=== PATIENT | male | born 1945 | race Caucasian/White ===

== ENCOUNTER 2018-08-30 16:11 | Inpatient (IN) | payer MEDICARE, MEDICAID ==
[~2018-08-30] VITALS: Ht 175.3 cm; Wt 71.7 kg
[2018-08-30] MEDS ORDERED: ABILIFY20 MG ORAL (16:17)
[2018-08-30] MEDS ORDERED: Sodium Chloride 500ML 500 ML IV ONE (16:18)
[2018-08-30] MEDS ORDERED: ATORVASTATIN CA20 MG ORAL (16:22)
[2018-08-30] MEDS ORDERED: MILK OF MA400 MG/51 ORAL (16:22)
[2018-08-30] MEDS ORDERED: LANTUS SOL100 UNIT/1 SUBQ (16:22)
[2018-08-30] MEDS ORDERED: OMEPRAZOLE40 M1 ORAL (16:22)
[2018-08-30] MEDS ORDERED: SYNTHROID100 MCG ORAL (16:22)
[2018-08-30] MEDS ORDERED: METOPROLOL SUCC25 MG ORAL (16:22)
[2018-08-30] MEDS ORDERED: FLEET ENEMA133 ML RECTAL (16:22)
[2018-08-30] MEDS ORDERED: GLUCAGEN1 M1 IJ (16:22)
[2018-08-30] MEDS ORDERED: ACETAMINOPHEN120 MG PO (16:22)
[2018-08-30] MEDS ORDERED: SENNA8.6 M2 PO (16:22)
[2018-08-30] MEDS ORDERED: BISACODYL5 MG ORAL (16:22)
[2018-08-30] MEDS ORDERED: COLACE100 MG ORAL (16:22)
[2018-08-30] MEDS ORDERED: ACETAMINOPHEN325 M1 ORAL (16:23)
--- NOTE | 2018-08-30 16:27 | Emergency Room Report ---
History of Present Illness General Chief Complaint: Altered Level of Consciousness Source: Medical Record Present Illness HPI Patient presents to ER with complaints of change in mental status Paramedics report the nursing facility felt the patient had been altered for the past one to 2 days Upon arrival the patient cannot provide history of why he was brought to the emergency room He is speaking clearly reports that he has been to the hospital several times Denies any chest pain denies any nausea vomiting denies any fevers or chills Patient was reported to have significantly elevated glucose upon arrival Allergies: Coded Allergies: No Known Allergies (Unverified , 08/30/18) Patient History Past Medical History: see triage record Pertinent Family History: none Reviewed Nursing Documentation: PMH: Agreed; PSxH: Agreed Nursing Documentation-PMH Past Medical History: No History, Except For Hx Cardiac Problems: No - hypothyroidism, anemia, hyperlipidemia Hx Hypertension: Yes Hx Diabetes: 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, muscle weakness Hx Gastrointestinal Problems: No - GERD History Of Psychiatric Problem: No - schizoprenia, failure to thrive, anxiety, Review of Systems All Other Systems: limited - Other than the ones mentioned in the history of present illness all others are reviewed however they do stay limited due to the patient's mental status Physical Exam Vital Signs Date Time Temp Pulse Resp B/P (MAP) Pulse Ox O2 Delivery O2 Flow Rate FiO2 08/30/18 16:09 98.2 84 16 170/82 98 Room Air Sp02 EP Interpretation: reviewed, normal General Appearance: no apparent distress Head: normocephalic, atraumatic Eyes: bilateral eye PERRL, bilateral eye EOMI ENT: hearing grossly normal, TMs + canals normal, uvula midline, dry mucus membranes Neck: full range of motion, supple, no meningismus, no bony tend Respiratory: lungs clear, normal breath sounds, no rhonchi, no respiratory distress, no retraction, no accessory muscle use Cardiovascular #1: normal peripheral pulses, regular rate, rhythm, no edema, no gallop, no JVD, no murmur Gastrointestinal: normal bowel sounds, non tender, soft, no mass, no organomegaly, non-distended, no guarding, no hernia, no pulsatile mass, no rebound Genitourinary: no CVA tenderness Musculoskeletal: normal inspection Neurologic: responsive, mental health case manager III-XII nml as tested, motor strength/tone normal, sensory intact Psychiatric: mood/affect normal Skin: normal color, no rash, warm/dry, palpation normal Lymphatic: normal inspection, no adenopathy Medical Decision Making Diagnostic Impression: Primary Impression: Altered level of consciousness Additional Impressions: Weakness Hyperglycemia ER Course Multiple differentials are considered Patient requires extensive blood work and acute intervention glucose levels are significantly elevated however the patient does not show evidence of acidosis or DKA Further hydration is provided including insulin Patient placed into admission for further care Labs Test 08/30/18 15:25 08/30/18 17:15 White Blood Count 4.4 K/UL (4.8-10.8) Red Blood Count 4.15 M/UL (4.70-6.10) Hemoglobin 12.5 G/DL (14.2-18.0) Hematocrit 34.9 % (42.0-52.0) Mean Corpuscular Volume 84 FL (80-99) Mean Corpuscular Hemoglobin 30.0 PG (27.0-31.0) Mean Corpuscular Hemoglobin Concent 35.7 G/DL (32.0-36.0) Red Cell Distribution Width 10.1 % (11.6-14.8) Platelet Count 180 K/UL (150-450) Mean Platelet Volume 6.5 FL (6.5-10.1) Neutrophils (%) (Auto) 59.0 % (45.0-75.0) Lymphocytes (%) (Auto) 31.9 % (20.0-45.0) Monocytes (%) (Auto) 6.5 % (1.0-10.0) Eosinophils (%) (Auto) 1.6 % (0.0-3.0) Basophils (%) (Auto) 1.0 % (0.0-2.0) Sodium Level 132 MMOL/L (136-145) Potassium Level 3.7 MMOL/L (3.5-5.1) Chloride Level 97 MMOL/L (98-107) Carbon Dioxide Level 25 MMOL/L (21-32) Anion Gap 10 mmol/L (5-15) Blood Urea Nitrogen 19 mg/dL (7-18) Creatinine 1.2 MG/DL (0.55-1.30) Estimat Glomerular Filtration Rate mL/min (>60) Glucose Level 457 MG/DL (74-106) Calcium Level 8.9 MG/DL (8.5-10.1) Total Bilirubin 0.2 MG/DL (0.2-1.0) Aspartate Amino Transf (AST/SGOT) 14 U/L (15-37) Alanine Aminotransferase (ALT/SGPT) 32 U/L (12-78) Alkaline Phosphatase 106 U/L (46-116) Total Creatine Kinase 91 U/L (26-308) Creatine Kinase MB 1.2 NG/ML (0.0-3.6) Creatine Kinase MB Relative Index 1.3 Troponin I 0.013 ng/mL (0.000-0.056) Total Protein 7.8 G/DL (6.4-8.2) Albumin 3.4 G/DL (3.4-5.0) Globulin 4.4 g/dL Albumin/Globulin Ratio 0.8 (1.0-2.7) Lipase 153 U/L (73-393) Urine Color Pale yellow Urine Appearance Clear Urine pH 6 (4.5-8.0) Urine Specific Ware 1.005 (1.005-1.035) Urine Protein Negative (NEGATIVE) Urine Glucose (UA) 4+ (NEGATIVE) Urine Ketones Negative (NEGATIVE) Urine Blood Negative (NEGATIVE) Urine Nitrite Negative (NEGATIVE) Urine Bilirubin Negative (NEGATIVE) Urine Urobilinogen Normal MG/DL (0.0-1.0) Urine Leukocyte Esterase Negative (NEGATIVE) Rhythm Strip Diag. Results EP Interpretation: yes Rate: 66 Rhythm: NSR, no PVC's, no ectopy Chest X-Ray Diagnostic Results Chest X-Ray Diagnostic Results : Chest X-Ray Ordered: Yes # of Views/Limited/Complete: 1 View Indication: Chest Pain EP Interpretation: Yes Interpretation: no consolidation, no effusion, no pneumothorax Impression: No acute disease Electronically Signed by: Jesus Velazquez DO Last Vital Signs Date Time Temp Pulse Resp B/P (MAP) Pulse Ox O2 Delivery O2 Flow Rate FiO2 08/30/18 16:09 98.2 84 16 170/82 98 Room Air Status: improved Disposition: ADMITTED INPATIENT Condition: Serious Jesus Velazquez DO Aug 30, 2018 16:27
[2018-08-30 16:43] VITALS: BP 153/69
[2018-08-30 16:54] LABS: EOSINOPHILS % (AUTO) 1.6 % (0.0-3.0); HEMATOCRIT 34.9 % (42.0-52.0); HEMOGLOBIN 12.5 G/DL (14.2-18.0); LYMPHOCYTES % (AUTO) 31.9 % (20.0-45.0); MEAN CORPUSCULAR VOLUME 84 FL (80-99); MONOCYTES % (AUTO) 6.5 % (1.0-10.0); PLATELET COUNT 180 K/UL (150-450); RED BLOOD COUNT 4.15 M/UL (4.70-6.10); RED CELL DISTRIBUTION WIDTH 10.1 % (11.6-14.8); WHITE BLOOD COUNT 4.4 K/UL (4.8-10.8)
[2018-08-30 17:00] LABS: ANION GAP 10 mmol/L (5-15); BLOOD UREA NITROGEN 19 mg/dL (7-18); CALCIUM 8.9 MG/DL (8.5-10.1); CARBON DIOXIDE 25 MMOL/L (21-32); CHLORIDE 97 MMOL/L (98-107); CREATININE 1.2 MG/DL (0.55-1.30); POTASSIUM 3.7 MMOL/L (3.5-5.1); SODIUM 132 MMOL/L (136-145)
--- NOTE | 2018-08-30 17:01 | Diagnostic Imaging Report ---
Indication: Shortness of breath Technique: One view of the chest Comparison: none Findings: Lungs and pleural spaces are clear. Heart size is normal. Impression: Negative
[2018-08-30 17:13] LABS: ALANINE AMINOTRANSFERASE 32 U/L (12-78); ALBUMIN 3.4 G/DL (3.4-5.0); ALBUMIN/GLOBULIN RATIO 0.8 (1.0-2.7); ALKALINE PHOSPHATASE 106 U/L (46-116); ASPARTATE AMINO TRANSFERASE 14 U/L (15-37); BILIRUBIN,TOTAL 0.2 MG/DL (0.2-1.0); CKMB 1.2 NG/ML (0.0-3.6); CREATINE KINASE 91 U/L (26-308)
[2018-08-30 17:38] LABS: APPEARANCE,URINE CLEAR; BILIRUBIN, URINE NEGATIVE (NEGATIVE); COLOR,URINE PALE YELLOW; GLUCOSE, URINE (UA) 4+ (NEGATIVE); KETONES,URINE NEGATIVE (NEGATIVE); LEUKOCYTE ESTERASE ,URINE NEGATIVE (NEGATIVE); NITRITE,URINE NEGATIVE (NEGATIVE); PH,URINE 6 (4.5-8.0); PROTEIN,URINE NEGATIVE (NEGATIVE); UROBILINOGEN,URINE NORMAL MG/DL (0.0-1.0)
[2018-08-30 17:42] VITALS: BP 156/70
[2018-08-30] MEDS ORDERED: Insulin Human Regular 100units/ml 3ml IV ONE (18:15)
[2018-08-30 19:40] VITALS: BP 117/76
[2018-08-30 20:07] VITALS: BP 141/72
[2018-08-30] MEDS ORDERED: Fleet's Enema 133ml RECTAL ONE (20:45)
[2018-08-30] MEDS ORDERED: Sennosides 8.6mg tab ORAL PRN (20:45)
[2018-08-30] MEDS ORDERED: Bisacodyl EC 5mg tab ORAL PRN (20:45)
[2018-08-30] MEDS ORDERED: Milk of Magnesia 30ml Ud ORAL PRN (20:45)
[2018-08-30] MEDS ORDERED: Fleet's Enema 133ml RECTAL PRN (21:00)
[2018-08-30] MEDS: Atorvastatin 20mg tab ORAL SCH (21:37)
[2018-08-30] MEDS: NovoLOG Insulin Flexpen SUBQ SCH (21:38)
[2018-08-31 04:00] VITALS: BP 152/99
[2018-08-31] MEDS: NovoLOG Insulin Flexpen SUBQ SCH ×6 (05:40→20:41)
[2018-08-31 07:30] VITALS: BP 132/73
[2018-08-31] MEDS: Docusate 100mg cap ORAL SCH (08:03)
[2018-08-31] MEDS: Metoprolol Succinate XL 25mg tab ORAL SCH (08:03)
[2018-08-31] MEDS ORDERED: ARIPiprazole 10mg tab ORAL SCH (09:00)
[2018-08-31 12:00] VITALS: BP 153/80
[2018-08-31] MEDS: Levemir Flexpen SUBQ SCH (14:21)
[2018-08-31 16:00] VITALS: BP 169/85
--- NOTE | 2018-08-31 16:45 | History and Physical Report ---
DATE OF ADMISSION: 08/30/2018 Basically, this is Dr. Zac Yung's patient. I am covering Dr. Zac Yung. HISTORY OF PRESENT ILLNESS: The patient is admitted for elevated blood sugar. He is a poor historian and admitted for encephalopathy. The patient again is a poor historian, cannot get the information from him, but the patient's blood sugar was elevated, was altered, and is admitted for that reason. PAST MEDICAL HISTORY: Organic brain syndrome, psychosis, hyperlipidemia, constipation, NIDDM, hypothyroidism, GERD, and constipation. PAST SURGICAL HISTORY: Unable to obtain. ALLERGIES: No known allergies. MEDICATIONS: Abilify, Lipitor, bisacodyl, Colace, insulin, Levemir, levothyroxine, omeprazole, Senokot. FAMILY HISTORY: Unable to obtain. SOCIAL HISTORY: Unable to obtain. REVIEW OF SYSTEMS: Poor historian. Unable to obtain. PHYSICAL EXAMINATION: VITAL SIGNS: Temperature degrees, pulse is 84, and blood pressure 152/99. HEENT: PERRLA. NECK: Supple. No lymphadenopathy. CHEST: Clear to auscultation. CARDIOVASCULAR: Regular rate and rhythm. GASTROINTESTINAL: Abdomen is soft. Positive bowel sounds. EXTREMITIES: No edema. Reflexes on both sides. LABORATORY AND DIAGNOSTIC DATA: WBC 4.4, hemoglobin 12.5, and platelets 180,000. Sodium 133, potassium 3.7, chloride 97, BUN of 19, creatinine of 1.2, glucose 457, and hemoglobin A1c 10.9. ASSESSMENT AND PLAN: 1. Elevated blood pressure. 2. Altered mental status, most likely due to elevated blood sugar. 3. Hyponatremia. 4. Borderline potassium and elevated BUN. I have asked Dr. Rowan and Dr. Lopes to see the patient for the above-mentioned diagnoses and treatment. Jesus Chew M.D. DR: DANIEL JOB#: [id number] CC:
[2018-08-31 18:00] VITALS: BP 138/73
[2018-08-31 20:00] VITALS: BP 151/89
[2018-08-31] MEDS: Atorvastatin 20mg tab ORAL SCH (20:41)
[2018-09-01] MEDS: NovoLOG Insulin Flexpen SUBQ SCH ×7 (06:24→20:42)
[2018-09-01 07:40] VITALS: BP 155/80
[2018-09-01] MEDS: Metoprolol Succinate XL 25mg tab ORAL SCH (08:12)
[2018-09-01] MEDS: Levemir Flexpen SUBQ SCH (08:13)
[2018-09-01] MEDS: Docusate 100mg cap ORAL SCH (08:14)
--- NOTE | 2018-09-01 10:00 | Consultation ---
DATE OF CONSULTATION: 09/01/2018 ENDOCRINOLOGY CONSULTATION CONSULTING PHYSICIAN: Igor Rowan M.D. REFERRING PHYSICIAN: Jesus Chew M.D. REASON FOR CONSULTATION: Diabetes management. HISTORY OF PRESENT ILLNESS: The patient is a 73-year-old male, who presented to the hospital with a complaint of change in mental status. He comes from nursing facility and the paramedics reported that the patient was altered for the past two days. It was difficult to elicit history from him. Glucose was elevated and Endocrinology was consulted in order to assist in the management of diabetes. PAST MEDICAL HISTORY: 1. Diabetes. 2. Hypothyroidism. 3. Anemia. 4. Hyperlipidemia. PAST SURGICAL HISTORY: Unknown. FAMILY HISTORY: Noncontributory. SOCIAL HISTORY: No smoking, alcohol or drug use. He lives in a intermediate facility. LABORATORY DATA: WBC 4, hemoglobin 12, hematocrit 34.9, and platelets of 180. Sodium 132, potassium 3.7, chloride 97, bicarbonate 25, BUN 19, creatinine 1.2, glucose of 457. A1c of 10.9. PHYSICAL EXAMINATION: GENERAL: Not in apparent distress. VITAL SIGNS: Blood pressure 155/80, pulse of 101, temperature of 97.8, and respiratory rate 18. HEENT: Pupils are equal and reactive to light. Sclerae anicteric. NECK: No JVD. HEART: Regular. LUNGS: Clear. ABDOMEN: Positive bowel sounds. EXTREMITIES: No clubbing or cyanosis. DIAGNOSES: 1. Encephalopathy. 2. Diabetes, out of control. 3. Hypothyroidism. PLAN: 1. Start Levemir 30 units daily. 2. Start NovoLog 8 units before each meal. 3. NovoLog sliding scale before meals and at bedtime. 4. Continue levothyroxine 100 mcg daily. 5. I will follow the patient during hospital stay. Thank you, Dr. Chew, for the courtesy of this consultation. Igor Rowan M.D. DR: DYLAN/LYSSA JOB#: [id number] CC: NAINA
--- NOTE | 2018-09-01 11:02 | General Progress Note ---
Assessment/Plan Problem List: (1) Hyperglycemia ICD Codes: R73.9 - Hyperglycemia, unspecified SNOMED: 11083628 (2) Weakness ICD Codes: R53.1 - Weakness SNOMED: 60803207 (3) Altered level of consciousness ICD Codes: R40.4 - Transient alteration of awareness SNOMED: 6935507 Status: progressing Assessment/Plan afebrile ams elevated sugar is improving dr diez for diabetic adjustment Subjective ROS Limited/Unobtainable: Yes Allergies: Coded Allergies: No Known Allergies (Unverified , 08/30/18) Objective Last 24 Hour Vital Signs Date Time Temp Pulse Resp B/P (MAP) Pulse Ox O2 Delivery O2 Flow Rate FiO2 09/01/18 09:00 Room Air 09/01/18 08:12 101 155/80 09/01/18 07:40 97.9 101 155/80 (105) 08/31/18 20:48 Room Air 08/31/18 20:00 98.6 82 18 151/89 (109) 100 08/31/18 18:00 63 138/73 (94) 08/31/18 16:00 97.5 78 18 169/85 (113) 100 08/31/18 12:00 98.1 98 19 153/80 (104) 98 Intake and Output 08/31/18 09/01/18 19:00 07:00 Intake Total 600 ml 360 ml Balance 600 ml 360 ml Intake Oral 600 ml 360 ml # Voids 3 2 # Bowel Movements 2 Laboratory Tests 08/31/18 12:20: Hemoglobin A1c 10.9H Height (Feet): 5 Height (Inches): 9.00 Weight (Pounds): 158 Cardiovascular: regular rhythm Respiratory/Chest: lungs clear Abdomen: soft Jesus Chew MD Sep 01, 2018 11:02
[2018-09-01 12:00] VITALS: BP 142/95
[2018-09-01 16:00] VITALS: BP 115/71
[2018-09-01 20:00] VITALS: BP 157/85
[2018-09-01] MEDS: Atorvastatin 20mg tab ORAL SCH (20:42)
[2018-09-02] VITALS: BP 156/74
[2018-09-02 04:00] VITALS: BP 127/84
[2018-09-02] MEDS: NovoLOG Insulin Flexpen SUBQ SCH ×7 (06:16→21:03)
[2018-09-02] MEDS: Levemir Flexpen SUBQ SCH ×2 (09:00→21:03)
[2018-09-02] MEDS: Docusate 100mg cap ORAL SCH (09:00)
[2018-09-02] MEDS: Metoprolol Succinate XL 25mg tab ORAL SCH (09:00)
--- NOTE | 2018-09-02 12:01 | General Progress Note ---
Assessment/Plan Problem List: (1) Altered level of consciousness ICD Codes: R40.4 - Transient alteration of awareness SNOMED: 8757853 (2) Hyperglycemia ICD Codes: R73.9 - Hyperglycemia, unspecified SNOMED: 57785628 (3) Weakness ICD Codes: R53.1 - Weakness SNOMED: 32000601 Assessment/Plan change Levemir to 30 units qhs continue Novolog 8 units ac tid + SSI ac / hs Subjective Allergies: Coded Allergies: No Known Allergies (Unverified , 08/30/18) All Systems: reviewed and negative except above Subjective events noted refusing insulin Objective Last 24 Hour Vital Signs Date Time Temp Pulse Resp B/P (MAP) Pulse Ox O2 Delivery O2 Flow Rate FiO2 09/02/18 09:00 Room Air 09/02/18 04:00 97.9 74 20 127/84 (98) 100 09/02/18 00:00 97.8 67 19 156/74 (101) 100 09/01/18 20:44 Room Air 09/01/18 20:00 97.2 77 20 157/85 (109) 94 09/01/18 16:00 97.7 78 18 115/71 (86) 95 09/01/18 12:00 98.4 69 18 142/95 (111) 98 Intake and Output 09/01/18 09/02/18 19:00 07:00 Intake Total 840 ml 960 ml Output Total 1100 ml Balance 840 ml -140 ml Intake Oral 840 ml 960 ml Output Urine Total 1100 ml # Voids 2 Height (Feet): 5 Height (Inches): 9.00 Weight (Pounds): 158 General Appearance: no apparent distress Neck: normal alignment Respiratory/Chest: lungs clear Abdomen: normal bowel sounds Igor Rowan MD Sep 02, 2018 12:01
--- NOTE | 2018-09-02 16:31 | General Progress Note ---
Assessment/Plan Problem List: (1) Hyperglycemia ICD Codes: R73.9 - Hyperglycemia, unspecified SNOMED: 10753625 (2) Weakness ICD Codes: R53.1 - Weakness SNOMED: 35149609 (3) Altered level of consciousness ICD Codes: R40.4 - Transient alteration of awareness SNOMED: 2599913 Status: progressing Assessment/Plan nac ams elevated sugar is improving Subjective ROS Limited/Unobtainable: Yes Allergies: Coded Allergies: No Known Allergies (Unverified , 08/30/18) Objective Last 24 Hour Vital Signs Date Time Temp Pulse Resp B/P (MAP) Pulse Ox O2 Delivery O2 Flow Rate FiO2 09/02/18 09:00 Room Air 09/02/18 04:00 97.9 74 20 127/84 (98) 100 09/02/18 00:00 97.8 67 19 156/74 (101) 100 09/01/18 20:44 Room Air 09/01/18 20:00 97.2 77 20 157/85 (109) 94 Intake and Output 09/01/18 09/02/18 19:00 07:00 Intake Total 840 ml 960 ml Output Total 1100 ml Balance 840 ml -140 ml Intake Oral 840 ml 960 ml Output Urine Total 1100 ml # Voids 2 Height (Feet): 5 Height (Inches): 9.00 Weight (Pounds): 158 Neck: supple Cardiovascular: normal peripheral pulses Respiratory/Chest: lungs clear Abdomen: soft Jesus Chew MD Sep 02, 2018 16:31
[2018-09-02] MEDS: Atorvastatin 20mg tab ORAL SCH (21:04)
[2018-09-03 04:00] VITALS: BP 153/87
[2018-09-03] MEDS: NovoLOG Insulin Flexpen SUBQ SCH ×7 (06:12→21:45)
[2018-09-03] MEDS: Docusate 100mg cap ORAL SCH (09:35)
[2018-09-03] MEDS: Metoprolol Succinate XL 25mg tab ORAL SCH (09:36)
--- NOTE | 2018-09-03 11:16 | General Progress Note ---
Assessment/Plan Problem List: (1) Altered level of consciousness ICD Codes: R40.4 - Transient alteration of awareness SNOMED: 1894192 (2) Hyperglycemia ICD Codes: R73.9 - Hyperglycemia, unspecified SNOMED: 09714047 (3) Weakness ICD Codes: R53.1 - Weakness SNOMED: 24580725 Assessment/Plan continue Levemir 30 units qhs continue Novolog 8 units ac tid + SSI ac / hs Subjective ROS Limited/Unobtainable: Yes Allergies: Coded Allergies: No Known Allergies (Unverified , 08/30/18) Subjective events noted non compliant walking in the hallway Objective Last 24 Hour Vital Signs Date Time Temp Pulse Resp B/P (MAP) Pulse Ox O2 Delivery O2 Flow Rate FiO2 09/03/18 09:36 89 155/83 09/03/18 04:00 97.9 73 19 153/87 (109) 100 09/02/18 21:00 Room Air Intake and Output 09/02/18 09/03/18 19:00 07:00 Intake Total 1200 ml 240 ml Balance 1200 ml 240 ml Intake Oral 1200 ml 240 ml # Voids 4 Height (Feet): 5 Height (Inches): 9.00 Weight (Pounds): 158 General Appearance: no apparent distress Neck: normal alignment Cardiovascular: regular rhythm Respiratory/Chest: lungs clear Abdomen: normal bowel sounds Objective Current Medications Medications (Trade) Dose Ordered Sig/Nany Route PRN Reason Start Time Stop Time Status Last Admin Dose Admin Acetaminophen (Tylenol) 325 mg Q4H PRN ORAL MILD PAIN / T> 100.5 08/30/18 20:45 09/29/18 20:44 Atorvastatin Calcium (Lipitor) 20 mg BEDTIME ORAL 08/30/18 21:00 09/29/18 20:59 09/02/18 21:04 Bisacodyl (Dulcolax) 5 mg DAILYPRN PRN ORAL Constipation 08/30/18 20:45 09/29/18 20:44 Dextrose (Dextrose 50%) 25 ml Q30M PRN IV Hypoglycemia 08/30/18 20:45 09/29/18 20:44 Dextrose (Dextrose 50%) 50 ml Q30M PRN IV Hypoglycemia 08/30/18 20:45 09/29/18 20:44 Docusate Sodium (Colace) 100 mg DAILY ORAL 08/31/18 09:00 09/30/18 08:59 09/03/18 09:35 Insulin Aspart (NovoLOG) BEFORE MEALS AND HS SUBQ 08/30/18 22:00 09/29/18 21:59 09/02/18 21:03 Insulin Aspart (NovoLOG) 8 units NOVOTIAC SUBQ 08/31/18 12:50 09/30/18 12:49 09/02/18 06:16 Insulin Detemir (Levemir) 30 units QHS SUBQ 09/02/18 21:00 09/30/18 13:59 09/02/18 21:03 Levothyroxine Sodium (Synthroid) 100 mcg ACBREAKFAST ORAL 08/31/18 06:30 09/30/18 06:29 09/03/18 06:12 Magnesium Hydroxide (Mom) 30 ml DAILYPRN PRN ORAL Constipation 08/30/18 20:45 09/29/18 20:44 Metoprolol Succinate (Toprol XL) 25 mg DAILY ORAL 08/31/18 09:00 09/30/18 08:59 09/03/18 09:36 Sennosides (Senokot) 8.6 mg DAILYPRN PRN ORAL Constipation 08/30/18 20:45 09/29/18 20:44 Sodium Phosphate (Fleet's Sodium Phosl Enema) 133 ml DAILYPRN PRN RECTAL constipation 08/30/18 21:00 09/29/18 20:59 Item Value Date Time 12/09/91 0000 Bedside Blood Glucose 411 mg/dl H 09/02/18 0652 Bedside Blood Glucose 71 mg/dl 09/01/18 2118 Bedside Blood Glucose 292 mg/dl H 09/01/18 1700 Bedside Blood Glucose 177 mg/dl H 09/01/18 1203 Bedside Blood Glucose 251 mg/dl H 09/01/18 0813 Bedside Blood Glucose 183 mg/dl H 09/03/18 0630 Bedside Blood Glucose 336 mg/dl H 09/02/18 2103 Igor Rowan MD Sep 03, 2018 11:16
[2018-09-03] MEDS: Atorvastatin 20mg tab ORAL SCH (21:31)
[2018-09-03] MEDS: Levemir Flexpen SUBQ SCH (21:44)
[2018-09-04] MEDS: NovoLOG Insulin Flexpen SUBQ SCH ×7 (06:30→20:23)
[2018-09-04] MEDS: Docusate 100mg cap ORAL SCH (08:58)
[2018-09-04] MEDS: Metoprolol Succinate XL 25mg tab ORAL SCH (08:58)
[2018-09-04] MEDS ORDERED: LORazepam 1mg tab ORAL PRN (13:00)
--- NOTE | 2018-09-04 13:10 | General Progress Note ---
Assessment/Plan Problem List: (1) Altered level of consciousness ICD Codes: R40.4 - Transient alteration of awareness SNOMED: 6208694 (2) Hyperglycemia ICD Codes: R73.9 - Hyperglycemia, unspecified SNOMED: 98178667 (3) Weakness ICD Codes: R53.1 - Weakness SNOMED: 94853053 Status: stable, progressing Assessment/Plan ot pt diet bs bp control cbc bmp am psyc eval dc planning Subjective Constitutional: Reports: weakness Allergies: Coded Allergies: No Known Allergies (Unverified , 08/30/18) All Systems: reviewed and negative except above Subjective confused in room Objective Last 24 Hour Vital Signs Date Time Temp Pulse Resp B/P (MAP) Pulse Ox O2 Delivery O2 Flow Rate FiO2 09/04/18 09:00 Room Air 09/04/18 08:58 80 144/72 09/03/18 21:00 Room Air Intake and Output 09/03/18 09/04/18 19:00 07:00 Intake Total 960 ml 1200 ml Balance 960 ml 1200 ml Intake Oral 960 ml 1200 ml # Voids 2 Height (Feet): 5 Height (Inches): 9.00 Weight (Pounds): 158 General Appearance: lethargic EENT: normal ENT inspection Neck: normal alignment Cardiovascular: normal peripheral pulses, normal rate, regular rhythm Respiratory/Chest: chest wall non-tender, lungs clear, normal breath sounds Abdomen: normal bowel sounds, non tender, soft Extremities: normal inspection Edema: no edema noted Arm (L), no edema noted Arm (R), no edema noted Leg (L), no edema noted Leg (R), no edema noted Pedal (L), no edema noted Pedal (R), no edema noted Generalized Neurologic: motor weakness Skin: normal pigmentation, warm/dry Zac Yung DO Sep 04, 2018 13:09
--- NOTE | 2018-09-04 13:28 | Pulmonology Progress Note ---
Assessment/Plan Problems: (1) Altered level of consciousness (2) Hyperglycemia (3) Psychosis (4) Weakness (5) History of hypertension Assessment/Plan sliding scale diabetic diet psych evaluation monitor BP symptomatic treatment dvt prophylaxis Subjective ROS Limited/Unobtainable: No Interval Events: walking in the hallway Allergies: Coded Allergies: No Known Allergies (Unverified , 08/30/18) Objective Last 24 Hour Vital Signs Date Time Temp Pulse Resp B/P (MAP) Pulse Ox O2 Delivery O2 Flow Rate FiO2 09/04/18 09:00 Room Air 09/04/18 08:58 80 144/72 09/03/18 21:00 Room Air Intake and Output 09/03/18 09/04/18 19:00 07:00 Intake Total 960 ml 1200 ml Balance 960 ml 1200 ml Intake Oral 960 ml 1200 ml # Voids 2 General Appearance: WD/WN HEENT: normocephalic, atraumatic Respiratory/Chest: chest wall non-tender, lungs clear Cardiovascular: normal peripheral pulses, normal rate Abdomen: normal bowel sounds, soft, non tender Genitourinary: normal external genitalia Extremities: no cyanosis Neurologic/Psychiatric: benefits manager II-XII grossly normal Lymphatic: no neck adenopathy Current Medications Medications (Trade) Dose Ordered Sig/Nany Route PRN Reason Start Time Stop Time Status Last Admin Dose Admin Acetaminophen (Tylenol) 325 mg Q4H PRN ORAL MILD PAIN / T> 100.5 08/30/18 20:45 09/29/18 20:44 Atorvastatin Calcium (Lipitor) 20 mg BEDTIME ORAL 08/30/18 21:00 09/29/18 20:59 09/03/18 21:31 Bisacodyl (Dulcolax) 5 mg DAILYPRN PRN ORAL Constipation 08/30/18 20:45 09/29/18 20:44 Dextrose (Dextrose 50%) 25 ml Q30M PRN IV Hypoglycemia 08/30/18 20:45 09/29/18 20:44 Dextrose (Dextrose 50%) 50 ml Q30M PRN IV Hypoglycemia 08/30/18 20:45 09/29/18 20:44 Docusate Sodium (Colace) 100 mg DAILY ORAL 08/31/18 09:00 09/30/18 08:59 09/04/18 08:58 Insulin Aspart (NovoLOG) BEFORE MEALS AND HS SUBQ 08/30/18 22:00 09/29/18 21:59 09/03/18 21:45 Insulin Aspart (NovoLOG) 8 units NOVOTIAC SUBQ 08/31/18 12:50 09/30/18 12:49 09/02/18 06:16 Insulin Detemir (Levemir) 30 units QHS SUBQ 09/02/18 21:00 09/30/18 13:59 09/03/18 21:44 Levothyroxine Sodium (Synthroid) 100 mcg ACBREAKFAST ORAL 08/31/18 06:30 09/30/18 06:29 09/03/18 06:12 Lorazepam (Ativan) 2 mg Q6H PRN ORAL For Anxiety 09/04/18 13:00 09/11/18 12:59 Magnesium Hydroxide (Mom) 30 ml DAILYPRN PRN ORAL Constipation 08/30/18 20:45 09/29/18 20:44 Metoprolol Succinate (Toprol XL) 25 mg DAILY ORAL 08/31/18 09:00 09/30/18 08:59 09/04/18 08:58 Risperidone (RisperDAL) 1 mg BID ORAL 09/04/18 13:00 10/04/18 12:59 Sennosides (Senokot) 8.6 mg DAILYPRN PRN ORAL Constipation 08/30/18 20:45 09/29/18 20:44 Sodium Phosphate (Fleet's Sodium Phosl Enema) 133 ml DAILYPRN PRN RECTAL constipation 08/30/18 21:00 09/29/18 20:59 Sara Chu MD Sep 04, 2018 13:28
--- NOTE | 2018-09-04 14:13 | Cardiology Report ---
APPROVED REPORT EKG Measurement Heart [id number] Normal sinus rhythm Normal ECG
--- NOTE | 2018-09-04 14:41 | General Progress Note ---
Assessment/Plan Problem List: (1) Altered level of consciousness ICD Codes: R40.4 - Transient alteration of awareness SNOMED: 3916229 (2) Hyperglycemia ICD Codes: R73.9 - Hyperglycemia, unspecified SNOMED: 34057970 (3) Weakness ICD Codes: R53.1 - Weakness SNOMED: 84882493 Assessment/Plan continue Levemir 30 units qhs continue Novolog 8 units ac tid + SSI ac / hs Subjective Allergies: Coded Allergies: No Known Allergies (Unverified , 08/30/18) All Systems: reviewed and negative except above Subjective events noted non compliant Objective Last 24 Hour Vital Signs Date Time Temp Pulse Resp B/P (MAP) Pulse Ox O2 Delivery O2 Flow Rate FiO2 09/04/18 09:00 Room Air 09/04/18 08:58 80 144/72 09/03/18 21:00 Room Air Intake and Output 09/03/18 09/04/18 19:00 07:00 Intake Total 960 ml 1200 ml Balance 960 ml 1200 ml Intake Oral 960 ml 1200 ml # Voids 2 Height (Feet): 5 Height (Inches): 9.00 Weight (Pounds): 158 General Appearance: no apparent distress Neck: normal alignment Cardiovascular: normal rate Respiratory/Chest: lungs clear Abdomen: normal bowel sounds Pelvis: normal external exam Objective Current Medications Medications (Trade) Dose Ordered Sig/Nany Route PRN Reason Start Time Stop Time Status Last Admin Dose Admin Acetaminophen (Tylenol) 325 mg Q4H PRN ORAL MILD PAIN / T> 100.5 08/30/18 20:45 09/29/18 20:44 Atorvastatin Calcium (Lipitor) 20 mg BEDTIME ORAL 08/30/18 21:00 09/29/18 20:59 09/03/18 21:31 Bisacodyl (Dulcolax) 5 mg DAILYPRN PRN ORAL Constipation 08/30/18 20:45 09/29/18 20:44 Dextrose (Dextrose 50%) 25 ml Q30M PRN IV Hypoglycemia 08/30/18 20:45 09/29/18 20:44 Dextrose (Dextrose 50%) 50 ml Q30M PRN IV Hypoglycemia 08/30/18 20:45 09/29/18 20:44 Docusate Sodium (Colace) 100 mg DAILY ORAL 08/31/18 09:00 09/30/18 08:59 09/04/18 08:58 Insulin Aspart (NovoLOG) BEFORE MEALS AND HS SUBQ 08/30/18 22:00 09/29/18 21:59 09/03/18 21:45 Insulin Aspart (NovoLOG) 8 units NOVOTIAC SUBQ 08/31/18 12:50 09/30/18 12:49 09/02/18 06:16 Insulin Detemir (Levemir) 30 units QHS SUBQ 09/02/18 21:00 09/30/18 13:59 09/03/18 21:44 Levothyroxine Sodium (Synthroid) 100 mcg ACBREAKFAST ORAL 08/31/18 06:30 09/30/18 06:29 09/03/18 06:12 Lorazepam (Ativan) 2 mg Q6H PRN ORAL For Anxiety 09/04/18 13:00 09/11/18 12:59 Magnesium Hydroxide (Mom) 30 ml DAILYPRN PRN ORAL Constipation 08/30/18 20:45 09/29/18 20:44 Metoprolol Succinate (Toprol XL) 25 mg DAILY ORAL 08/31/18 09:00 09/30/18 08:59 09/04/18 08:58 Risperidone (RisperDAL) 1 mg BID ORAL 09/04/18 13:00 10/04/18 12:59 09/04/18 13:40 Sennosides (Senokot) 8.6 mg DAILYPRN PRN ORAL Constipation 08/30/18 20:45 09/29/18 20:44 Sodium Phosphate (Fleet's Sodium Phosl Enema) 133 ml DAILYPRN PRN RECTAL constipation 08/30/18 21:00 09/29/18 20:59 Item Value Date Time Bedside Blood Glucose 429 mg/dl H 09/03/18 2145 Igor Rowan MD Sep 04, 2018 14:41
[2018-09-04 16:00] VITALS: BP 135/73
[2018-09-04] MEDS: Atorvastatin 20mg tab ORAL SCH (20:22)
[2018-09-04] MEDS: Levemir Flexpen SUBQ SCH (20:22)
--- NOTE | 2018-09-04 23:03 | Consultation ---
History of Present Illness General Date patient seen: Sep 04, 2018 Chief Complaint: Altered Level of Consciousness Present Illness HPI 73-year-old male, who presented to the hospital with a complaint of change in mental status. He comes from nursing facility and the paramedics reported that the patient was altered for the past two days. the pt has been disorganized and agitated. the pt is delusional and is unable to provide any hx Allergies: Coded Allergies: No Known Allergies (Unverified , 08/30/18) Medication History Scheduled Aripiprazole* (Abilify*), 400 MG ORAL DAILY, (Reported) Atorvastatin Calcium* (Atorvastatin Calcium*), 20 MG ORAL BEDTIME, (Reported) Bisacodyl* (Dulcolax*), 10 MG ORAL ONCE, (Reported) Docusate Sodium* (Colace*), 100 MG ORAL DAILY, (Reported) Insulin Glargine (Lantus), 28 SUBQ BEDTIME, (Reported) Levothyroxine Sodium* (Synthroid*), 100 MCG ORAL DAILY, (Reported) Magnesium Hydroxide* (Milk Of Magnesia*), 30 ML ORAL DAILY, (Reported) Metoprolol Succinate* (Metoprolol Succinate*), 25 MG ORAL DAILY, (Reported) Na Phos,M-B/Na Phos,Di-Ba* (Fleet Enema*), 133 ML RECTAL DAILY, (Reported) Omeprazole (Omeprazole), 40 MG ORAL DAILY, (Reported) Scheduled PRN Acetaminophen* (Acetaminophen 325MG Tablet*), 325 MG ORAL Q4H PRN for For Pain, (Reported) Miscellaneous Medications Glucagon,Human Recombinant (Glucagen), 1 MG IJ, (Reported) Sennosides (Senna), 100 MG PO, (Reported) Sennosides (Senna), 100 MCG PO, (Reported) Discontinued Medications Acetaminophen* (Tylenol*), 325 MG PO Q4H PRN for Mild Pain/Temp > 100.5, ( Reported) Discontinued Reason: Prescription changed Patient History Healthcare decision maker Resuscitation status Full Code Advanced Directive on File No Past Medical/Surgical History Past Medical/Surgical History: (1) Altered level of consciousness (2) Hyperglycemia (3) Weakness (4) Psychosis (5) History of hypertension Review of Systems Psychiatric: Reports: prior hx, anxiety, depressed feelings, emotional problems , hallucinations Physical Exam General Appearance: alert, confused, agitated Last 24 Hour Vital Signs Date Time Temp Pulse Resp B/P (MAP) Pulse Ox O2 Delivery O2 Flow Rate FiO2 09/04/18 20:48 Room Air 09/04/18 16:00 98.9 78 19 135/73 (93) 100 09/04/18 09:00 Room Air 09/04/18 08:58 80 144/72 Intake and Output 09/03/18 09/04/18 19:00 07:00 Intake Total 960 ml 1200 ml Balance 960 ml 1200 ml Intake Oral 960 ml 1200 ml # Voids 2 Height (Feet): 5 Height (Inches): 9.00 Weight (Pounds): 158 Medications Current Medications Medications (Trade) Dose Ordered Sig/Nany Route PRN Reason Start Time Stop Time Status Last Admin Dose Admin Acetaminophen (Tylenol) 325 mg Q4H PRN ORAL MILD PAIN / T> 100.5 08/30/18 20:45 09/29/18 20:44 Atorvastatin Calcium (Lipitor) 20 mg BEDTIME ORAL 08/30/18 21:00 09/29/18 20:59 09/04/18 20:22 Bisacodyl (Dulcolax) 5 mg DAILYPRN PRN ORAL Constipation 08/30/18 20:45 09/29/18 20:44 Dextrose (Dextrose 50%) 25 ml Q30M PRN IV Hypoglycemia 08/30/18 20:45 09/29/18 20:44 Dextrose (Dextrose 50%) 50 ml Q30M PRN IV Hypoglycemia 08/30/18 20:45 09/29/18 20:44 Docusate Sodium (Colace) 100 mg DAILY ORAL 08/31/18 09:00 09/30/18 08:59 09/04/18 08:58 Insulin Aspart (NovoLOG) BEFORE MEALS AND HS SUBQ 08/30/18 22:00 09/29/18 21:59 09/03/18 21:45 Insulin Aspart (NovoLOG) 8 units NOVOTIAC SUBQ 08/31/18 12:50 09/30/18 12:49 09/02/18 06:16 Insulin Detemir (Levemir) 30 units QHS SUBQ 09/02/18 21:00 09/30/18 13:59 09/03/18 21:44 Levothyroxine Sodium (Synthroid) 100 mcg ACBREAKFAST ORAL 08/31/18 06:30 09/30/18 06:29 09/03/18 06:12 Lorazepam (Ativan) 2 mg Q6H PRN ORAL For Anxiety 09/04/18 13:00 09/11/18 12:59 Magnesium Hydroxide (Mom) 30 ml DAILYPRN PRN ORAL Constipation 08/30/18 20:45 09/29/18 20:44 Metoprolol Succinate (Toprol XL) 25 mg DAILY ORAL 08/31/18 09:00 09/30/18 08:59 09/04/18 08:58 Risperidone (RisperDAL) 1 mg BID ORAL 09/04/18 13:00 10/04/18 12:59 09/04/18 17:08 Sennosides (Senokot) 8.6 mg DAILYPRN PRN ORAL Constipation 08/30/18 20:45 09/29/18 20:44 Sodium Phosphate (Fleet's Sodium Phosl Enema) 133 ml DAILYPRN PRN RECTAL constipation 08/30/18 21:00 09/29/18 20:59 Assessment/Plan Problem List: (1) Psychosis ICD Codes: F29 - Unspecified psychosis not due to a substance or known physiological condition SNOMED: 79100581 Status: stable, progressing Assessment/Plan encephalopathy due to toxin agitation Satya Bonilla MD Sep 04, 2018 23:03
[2018-09-05] VITALS: BP 150/80
[2018-09-05 04:17] VITALS: BP 150/72
[2018-09-05] MEDS: NovoLOG Insulin Flexpen SUBQ SCH ×6 (06:24→17:02)
[2018-09-05 07:10] LABS: PHOSPHORUS 4.4 MG/DL (2.5-4.9)
[2018-09-05 07:17] LABS: BASOPHILS % (AUTO) 0.8 % (0.0-2.0); EOSINOPHILS % (AUTO) 2.7 % (0.0-3.0); HEMATOCRIT 34.9 % (42.0-52.0); HEMOGLOBIN 11.7 G/DL (14.2-18.0); MEAN CORPUSCULAR VOLUME 86 FL (80-99); MONOCYTES % (AUTO) 7.6 % (1.0-10.0); NEUTROPHILS % (AUTO) 55.9 % (45.0-75.0); PLATELET COUNT 174 K/UL (150-450); RED BLOOD COUNT 4.05 M/UL (4.70-6.10); RED CELL DISTRIBUTION WIDTH 11.1 % (11.6-14.8); WHITE BLOOD COUNT 4.9 K/UL (4.8-10.8)
[2018-09-05 07:28] LABS: ALANINE AMINOTRANSFERASE 35 U/L (12-78); ALBUMIN 3.2 G/DL (3.4-5.0); ALBUMIN/GLOBULIN RATIO 0.8 (1.0-2.7); ALKALINE PHOSPHATASE 83 U/L (46-116); ANION GAP 7 mmol/L (5-15); ASPARTATE AMINO TRANSFERASE 17 U/L (15-37); BILIRUBIN,TOTAL 0.3 MG/DL (0.2-1.0); BLOOD UREA NITROGEN 27 mg/dL (7-18); CALCIUM 8.9 MG/DL (8.5-10.1); CARBON DIOXIDE 28 MMOL/L (21-32); CHLORIDE 101 MMOL/L (98-107); CREATINE KINASE 61 U/L (26-308); CREATININE 1.3 MG/DL (0.55-1.30); POTASSIUM 4.4 MMOL/L (3.5-5.1); SODIUM 136 MMOL/L (136-145)
[2018-09-05 08:00] VITALS: BP 150/75
[2018-09-05] MEDS: Docusate 100mg cap ORAL SCH ×2 (08:58→09:00)
[2018-09-05] MEDS: Metoprolol Succinate XL 25mg tab ORAL SCH (09:05)
[2018-09-05 12:00] VITALS: BP 152/79
--- NOTE | 2018-09-05 13:19 | Pulmonology Progress Note ---
Assessment/Plan Problems: (1) Altered level of consciousness (2) Hyperglycemia (3) Psychosis (4) Weakness (5) History of hypertension Assessment/Plan awaiting placement eating well sliding scale diabetic diet psych evaluation monitor BP symptomatic treatment dvt prophylaxis Subjective ROS Limited/Unobtainable: No Constitutional: Reports: no symptoms HEENT: Repors: no symptoms Respiratory: Reports: no symptoms Allergies: Coded Allergies: No Known Allergies (Unverified , 08/30/18) Objective Last 24 Hour Vital Signs Date Time Temp Pulse Resp B/P (MAP) Pulse Ox O2 Delivery O2 Flow Rate FiO2 09/05/18 09:05 71 165/79 09/05/18 08:38 Room Air 09/05/18 08:00 98.6 81 18 150/75 (100) 100 09/05/18 04:17 97.4 80 20 150/72 (98) 100 09/05/18 00:00 97.1 82 20 150/80 (103) 98 09/04/18 20:48 Room Air 09/04/18 16:00 98.9 78 19 135/73 (93) 100 Intake and Output 09/04/18 09/05/18 19:00 07:00 # Voids 3 General Appearance: WD/WN HEENT: normocephalic, anicteric Respiratory/Chest: chest wall non-tender, lungs clear Cardiovascular: normal peripheral pulses, normal rate Abdomen: normal bowel sounds Extremities: no cyanosis Neurologic/Psychiatric: technology lead II-XII grossly normal Laboratory Tests 09/05/18 05:40: White Blood Count 4.9, Red Blood Count 4.05L, Hemoglobin 11.7L, Hematocrit 34.9L , Mean Corpuscular Volume 86, Mean Corpuscular Hemoglobin 28.9, Mean Corpuscular Hemoglobin Concent 33.4, Red Cell Distribution Width 11.1L, Platelet Count 174, Mean Platelet Volume 7.0, Neutrophils (%) (Auto) 55.9, Lymphocytes (%) (Auto) 33.0, Monocytes (%) (Auto) 7.6, Eosinophils (%) (Auto) 2.7, Basophils (%) (Auto) 0.8, Sodium Level 136, Potassium Level 4.4, Chloride Level 101, Carbon Dioxide Level 28, Anion Gap 7, Blood Urea Nitrogen 27H, Creatinine 1.3, Estimat Glomerular Filtration Rate , Glucose Level 401H, Calcium Level 8.9, Phosphorus Level 4.4, Magnesium Level 1.4L, Total Bilirubin 0.3, Aspartate Amino Transf (AST/SGOT) 17, Alanine Aminotransferase (ALT/SGPT) 35, Alkaline Phosphatase 83, Total Creatine Kinase 61, Total Protein 7.3, Albumin 3.2L, Globulin 4.1, Albumin/Globulin Ratio 0.8L Current Medications Medications (Trade) Dose Ordered Sig/Nany Route PRN Reason Start Time Stop Time Status Last Admin Dose Admin Acetaminophen (Tylenol) 325 mg Q4H PRN ORAL MILD PAIN / T> 100.5 08/30/18 20:45 09/29/18 20:44 Atorvastatin Calcium (Lipitor) 20 mg BEDTIME ORAL 08/30/18 21:00 09/29/18 20:59 09/04/18 20:22 Bisacodyl (Dulcolax) 5 mg DAILYPRN PRN ORAL Constipation 08/30/18 20:45 09/29/18 20:44 Dextrose (Dextrose 50%) 25 ml Q30M PRN IV Hypoglycemia 08/30/18 20:45 09/29/18 20:44 Dextrose (Dextrose 50%) 50 ml Q30M PRN IV Hypoglycemia 08/30/18 20:45 09/29/18 20:44 Docusate Sodium (Colace) 100 mg DAILY ORAL 08/31/18 09:00 09/30/18 08:59 09/04/18 08:58 Insulin Aspart (NovoLOG) BEFORE MEALS AND HS SUBQ 08/30/18 22:00 09/29/18 21:59 09/05/18 12:07 Insulin Aspart (NovoLOG) 8 units NOVOTIAC SUBQ 08/31/18 12:50 09/30/18 12:49 09/05/18 12:08 Insulin Detemir (Levemir) 30 units QHS SUBQ 09/02/18 21:00 09/30/18 13:59 09/03/18 21:44 Levothyroxine Sodium (Synthroid) 100 mcg ACBREAKFAST ORAL 08/31/18 06:30 09/30/18 06:29 09/05/18 06:24 Lorazepam (Ativan) 2 mg Q6H PRN ORAL For Anxiety 09/04/18 13:00 09/11/18 12:59 Magnesium Hydroxide (Mom) 30 ml DAILYPRN PRN ORAL Constipation 08/30/18 20:45 09/29/18 20:44 Metoprolol Succinate (Toprol XL) 25 mg DAILY ORAL 08/31/18 09:00 09/30/18 08:59 09/05/18 09:05 Risperidone (RisperDAL) 1 mg BID ORAL 09/04/18 13:00 10/04/18 12:59 09/05/18 09:00 Sennosides (Senokot) 8.6 mg DAILYPRN PRN ORAL Constipation 08/30/18 20:45 09/29/18 20:44 Sodium Phosphate (Fleet's Sodium Phosl Enema) 133 ml DAILYPRN PRN RECTAL constipation 08/30/18 21:00 09/29/18 20:59 Sara Chu MD Sep 05, 2018 13:19
--- NOTE | 2018-09-05 13:21 | General Progress Note ---
Assessment/Plan Problem List: (1) Altered level of consciousness ICD Codes: R40.4 - Transient alteration of awareness SNOMED: 1821956 (2) Hyperglycemia ICD Codes: R73.9 - Hyperglycemia, unspecified SNOMED: 13214032 (3) Weakness ICD Codes: R53.1 - Weakness SNOMED: 22186588 Status: stable, progressing, tolerating diet Assessment/Plan ot pt diet bs bp control dc if clear Subjective Constitutional: Reports: weakness Allergies: Coded Allergies: No Known Allergies (Unverified , 08/30/18) All Systems: reviewed and negative except above Subjective confused in room Objective Last 24 Hour Vital Signs Date Time Temp Pulse Resp B/P (MAP) Pulse Ox O2 Delivery O2 Flow Rate FiO2 09/05/18 09:05 71 165/79 09/05/18 08:38 Room Air 09/05/18 08:00 98.6 81 18 150/75 (100) 100 09/05/18 04:17 97.4 80 20 150/72 (98) 100 09/05/18 00:00 97.1 82 20 150/80 (103) 98 09/04/18 20:48 Room Air 09/04/18 16:00 98.9 78 19 135/73 (93) 100 Intake and Output 09/04/18 09/05/18 19:00 07:00 # Voids 3 Laboratory Tests 09/05/18 05:40: White Blood Count 4.9, Red Blood Count 4.05L, Hemoglobin 11.7L, Hematocrit 34.9L , Mean Corpuscular Volume 86, Mean Corpuscular Hemoglobin 28.9, Mean Corpuscular Hemoglobin Concent 33.4, Red Cell Distribution Width 11.1L, Platelet Count 174, Mean Platelet Volume 7.0, Neutrophils (%) (Auto) 55.9, Lymphocytes (%) (Auto) 33.0, Monocytes (%) (Auto) 7.6, Eosinophils (%) (Auto) 2.7, Basophils (%) (Auto) 0.8, Sodium Level 136, Potassium Level 4.4, Chloride Level 101, Carbon Dioxide Level 28, Anion Gap 7, Blood Urea Nitrogen 27H, Creatinine 1.3, Estimat Glomerular Filtration Rate , Glucose Level 401H, Calcium Level 8.9, Phosphorus Level 4.4, Magnesium Level 1.4L, Total Bilirubin 0.3, Aspartate Amino Transf (AST/SGOT) 17, Alanine Aminotransferase (ALT/SGPT) 35, Alkaline Phosphatase 83, Total Creatine Kinase 61, Total Protein 7.3, Albumin 3.2L, Globulin 4.1, Albumin/Globulin Ratio 0.8L Height (Feet): 5 Height (Inches): 9.00 Weight (Pounds): 158 General Appearance: lethargic EENT: normal ENT inspection Neck: normal alignment Cardiovascular: normal peripheral pulses, normal rate, regular rhythm Respiratory/Chest: chest wall non-tender, lungs clear, normal breath sounds Abdomen: normal bowel sounds, non tender, soft Extremities: normal inspection Edema: no edema noted Arm (L), no edema noted Arm (R), no edema noted Leg (L), no edema noted Leg (R), no edema noted Pedal (L), no edema noted Pedal (R), no edema noted Generalized Neurologic: responsive, motor weakness Skin: normal pigmentation, warm/dry Zac Yung DO Sep 05, 2018 13:21
[2018-09-05] MEDS ORDERED: RISPERDAL1 MG PO ×2 (15:38→15:39)
[2018-09-05] MEDS ORDERED: SENNOSIDES8.6 MG ORAL (15:40)
[2018-09-05] MEDS ORDERED: BISACODYL5 MG ORAL (15:41)
[2018-09-05] MEDS ORDERED: FLEET ENEMA133 ML RECTAL (15:43)
[2018-09-05] MEDS ORDERED: NOVOLOG100 UNITS1 SUBQ (15:45)
[2018-09-05] MEDS ORDERED: LEVEMIR100 UNIT/1 SUBQ (15:47)
[2018-09-05] MEDS ORDERED: NOVOLOG100 UNIT/3 SUBQ (15:47)
[2018-09-05] MEDS ORDERED: LEVEMIR FL100 UNIT/1 SUBQ (15:48)
[2018-09-05] MEDS ORDERED: LORAZEPAM1 MG ORAL (16:04)
--- NOTE | 2018-09-05 18:28 | General Progress Note ---
Assessment/Plan Problem List: (1) Altered level of consciousness ICD Codes: R40.4 - Transient alteration of awareness SNOMED: 1558899 (2) Hyperglycemia ICD Codes: R73.9 - Hyperglycemia, unspecified SNOMED: 36857100 (3) Weakness ICD Codes: R53.1 - Weakness SNOMED: 44325300 Assessment/Plan continue Levemir 30 units qhs continue Novolog 8 units ac tid + SSI ac / hs Ok for DC with current insulin order Subjective ROS Limited/Unobtainable: Yes Allergies: Coded Allergies: No Known Allergies (Unverified , 08/30/18) Subjective events noted non compliant Objective Last 24 Hour Vital Signs Date Time Temp Pulse Resp B/P (MAP) Pulse Ox O2 Delivery O2 Flow Rate FiO2 09/05/18 12:00 97.6 74 18 152/79 (103) 100 09/05/18 09:05 71 165/79 09/05/18 08:38 Room Air 09/05/18 08:00 98.6 81 18 150/75 (100) 100 09/05/18 04:17 97.4 80 20 150/72 (98) 100 09/05/18 00:00 97.1 82 20 150/80 (103) 98 09/04/18 20:48 Room Air Intake and Output 09/04/18 09/05/18 19:00 07:00 # Voids 3 Laboratory Tests 09/05/18 05:40: White Blood Count 4.9, Red Blood Count 4.05L, Hemoglobin 11.7L, Hematocrit 34.9L , Mean Corpuscular Volume 86, Mean Corpuscular Hemoglobin 28.9, Mean Corpuscular Hemoglobin Concent 33.4, Red Cell Distribution Width 11.1L, Platelet Count 174, Mean Platelet Volume 7.0, Neutrophils (%) (Auto) 55.9, Lymphocytes (%) (Auto) 33.0, Monocytes (%) (Auto) 7.6, Eosinophils (%) (Auto) 2.7, Basophils (%) (Auto) 0.8, Sodium Level 136, Potassium Level 4.4, Chloride Level 101, Carbon Dioxide Level 28, Anion Gap 7, Blood Urea Nitrogen 27H, Creatinine 1.3, Estimat Glomerular Filtration Rate , Glucose Level 401H, Calcium Level 8.9, Phosphorus Level 4.4, Magnesium Level 1.4L, Total Bilirubin 0.3, Aspartate Amino Transf (AST/SGOT) 17, Alanine Aminotransferase (ALT/SGPT) 35, Alkaline Phosphatase 83, Total Creatine Kinase 61, Total Protein 7.3, Albumin 3.2L, Globulin 4.1, Albumin/Globulin Ratio 0.8L Height (Feet): 5 Height (Inches): 9.00 Weight (Pounds): 158 General Appearance: no apparent distress Neck: normal alignment Cardiovascular: normal rate Respiratory/Chest: lungs clear Abdomen: normal bowel sounds Objective Current Medications Medications (Trade) Dose Ordered Sig/Nany Route PRN Reason Start Time Stop Time Status Last Admin Dose Admin Acetaminophen (Tylenol) 325 mg Q4H PRN ORAL MILD PAIN / T> 100.5 08/30/18 20:45 09/29/18 20:44 Atorvastatin Calcium (Lipitor) 20 mg BEDTIME ORAL 08/30/18 21:00 09/29/18 20:59 09/04/18 20:22 Bisacodyl (Dulcolax) 5 mg DAILYPRN PRN ORAL Constipation 08/30/18 20:45 09/29/18 20:44 Dextrose (Dextrose 50%) 25 ml Q30M PRN IV Hypoglycemia 08/30/18 20:45 09/29/18 20:44 Dextrose (Dextrose 50%) 50 ml Q30M PRN IV Hypoglycemia 08/30/18 20:45 09/29/18 20:44 Docusate Sodium (Colace) 100 mg DAILY ORAL 08/31/18 09:00 09/30/18 08:59 09/04/18 08:58 Insulin Aspart (NovoLOG) BEFORE MEALS AND HS SUBQ 08/30/18 22:00 09/29/18 21:59 09/05/18 12:07 Insulin Aspart (NovoLOG) 8 units NOVOTIAC SUBQ 08/31/18 12:50 09/30/18 12:49 09/05/18 12:08 Insulin Detemir (Levemir) 30 units QHS SUBQ 09/02/18 21:00 09/30/18 13:59 09/03/18 21:44 Levothyroxine Sodium (Synthroid) 100 mcg ACBREAKFAST ORAL 08/31/18 06:30 09/30/18 06:29 09/05/18 06:24 Lorazepam (Ativan) 2 mg Q6H PRN ORAL For Anxiety 09/04/18 13:00 09/11/18 12:59 Magnesium Hydroxide (Mom) 30 ml DAILYPRN PRN ORAL Constipation 08/30/18 20:45 09/29/18 20:44 Metoprolol Succinate (Toprol XL) 25 mg DAILY ORAL 08/31/18 09:00 09/30/18 08:59 09/05/18 09:05 Risperidone (RisperDAL) 1 mg BID ORAL 09/04/18 13:00 10/04/18 12:59 09/05/18 18:19 Sennosides (Senokot) 8.6 mg DAILYPRN PRN ORAL Constipation 08/30/18 20:45 09/29/18 20:44 Sodium Phosphate (Fleet's Sodium Phosl Enema) 133 ml DAILYPRN PRN RECTAL constipation 08/30/18 21:00 09/29/18 20:59 Item Value Date Time Bedside Blood Glucose 282 mg/dl H 09/05/18 1702 Bedside Blood Glucose 266 mg/dl H 09/05/18 1208 Bedside Blood Glucose 377 mg/dl H 09/05/18 0629 Bedside Blood Glucose 310 mg/dl H 09/04/18 2048 Bedside Blood Glucose 292 mg/dl H 09/04/18 1650 Igor Rowan MD Sep 05, 2018 18:28
--- NOTE | 2018-09-05 18:30 | Progress Note ---
DATE: 09/05/2018 SUBJECTIVE: The patient calmer, still confused, not able to answer questions appropriately. He was found wandering in the cafeteria, was brought back to the unit. The patient is confused and has episodes of agitation. MENTAL STATUS EXAMINATION: The patient is confused, alert and oriented to self only. Mood is anxious. Affect is constricted. Congruent with mood. Thought process is concrete. Thought content, positive for delusions. Insight and judgment is impaired. ASSESSMENT: 1. Encephalopathy due to general medical conditions. 2. Psychotic disorder. 3. The patient lacks capacity to make decision. PLAN: 1. We will continue current medication. 2. Provide the patient with supportive therapy and reality orientation. Satya Bonilla M.D. DR: Wayne JOB#: [id number] CC:
--- NOTE | 2018-09-06 11:28 | Discharge Summary ---
Discharge Summary Discharge Summary _ DATE OF ADMISSION: 08/30/2018 DATE OF DISCHARGE: 09/05/2018 REASON FOR ADMISSION: 73 years old male with past medical history of hypertension, insulin-dependent diabetes mellitus, hypothyroidism, hyperlipidemia, anemia, schizophrenia, GERD was brought to emergency room for evaluation due to altered level of consciousness. Vital signs revealed high blood pressure- 170/82, otherwise stable . Laboratory workup revealed WBC 4.4, hemoglobin 12.5, hematocrit 34.9. Sodium 132 ,BUN 19, creatinine 1.2. Troponin negative. EKG revealed normal sinus rhythm, no acute ischemic changes. Urinalysis +4 glucose, no ketones, no evidence of UTI. Glucose - 457. Anion gap within normal limits . Chest x-ray revealed no acute cardiopulmonary pathology. Patient admitted with diagnoses of altered level of consciousness, hyperglycemia , hyponatremia, elevated blood pressure. CONSULTANTS: psychiatrist objective c developer [facility] COURSE: Patient admitted to medical surgical floor. Endocrinology consult was requested. Blood sugar was managed with long-acting insulin Levemir, pre-meal short acting NovoLog and sliding scale of insulin as needed. Hemoglobin A1c 10.9, not at goal . Blood sugar was improving. Patient needs further optimization of anti-glycemic regimen as outpatient. Blood pressure was managed with beta alyse. Statin was continued. DVT prophylaxis provided. Renal parameters and electrolytes were closely monitored. Electrolytes corrected as needed. Sodium 136 prior to discharge. Nephrotoxins were avoided. Psychiatrist seen and evaluated patient. Reality orientation and supportive therapy provided. Bowel regimen instituted. Hemoglobin and hematocrit were closely monitored with goal to keep hemoglobin above 7. Hemoglobin and hematocrit remained stable. Synthroid continued. Patient was working with physical and occupational therapists. Supportive care provided. Patient clinically improved and was stable for transfer back to [facility] facility for continuation of care FINAL DIAGNOSES: Acute metabolic encephalopathy secondary to hyperglycemia- resolved Hyperglycemia Diabetes mellitus out of control ( with YtS2c-85.5) Hypertension Hyperlipidemia Hyponatremia -resolved DISCHARGE MEDICATIONS: See Medication Reconciliation list. DISCHARGE INSTRUCTIONS: Patient was discharged to the [facility] facility. Follow up with medical doctor at the facility. I have been assigned to dictate discharge summary for this account. I was not involved in the patient's management. July Haider NP Sep 06, 2018 11:28
== END 2018-09-05 19:50 | DRG 637 ==
LOC: EDBD 16:11 → EMR 17:32 → 4E 17:40 → EDBEDREQ 18:57 → 4E 09-01 08:59
DX: E11.65 Type 2 diabetes mellitus with hyperglycemia (principal); G93.41 Metabolic encephalopathy; G93.40 Encephalopathy, unspecified; E87.1 Hypo-osmolality and hyponatremia; Z79.4 Long term (current) use of insulin; E78.5 Hyperlipidemia, unspecified; F20.9 Schizophrenia, unspecified; K21.9 Gastro-esophageal reflux disease without esophagitis; E03.9 Hypothyroidism, unspecified; F29 Unspecified psychosis not due to a substance or known physiological condition; R53.1 Weakness
CPT/HCPCS: 36415; 71045; 80053; 81003; 82550; 82553; 82962; 83036; 83690; 83735; 84100; 84484; 85025; 87040; 87081; 93005; 96374; 97803; 99285; J1815; S5561